=== PATIENT | female | born 1960 | race Caucasian/White ===

== ENCOUNTER 2024-09-29 16:53 | Emergency (ER) | payer MEDICAID, SELFPAY ==
[2024-09-29 16:55] VITALS: BP 129/64; PULSE 80; RESP 18; TEMP 36.6; O2SAT 100
--- NOTE | 2024-09-29 16:58 | XR_ITS ---
Examination: Hand, left 3 views Technique: Hand AP, oblique, lateral 3 views Date and time of exam: September 29, 2024 1744 hours INDICATIONS: Injury to the hand today, hand pain. FINDINGS: Old healed fracture deformity fifth metacarpal Advanced osteoarthritis first carpometacarpal joint Acute fracture midportion distal phalanx first digit No major displacement IMPRESSION: Acute fracture distal phalanx first digit
--- NOTE | 2024-09-29 16:58 | XR_ITS ---
Examination: Right knee 4 views TECHNIQUE: AP oblique lateral axial right knee 4 views Exam date and time: September 29, 2024 1748 hours INDICATIONS: Injury to the knee today, knee pain. FINDINGS: Moderate osteopenia No fracture. No patellar dislocation IMPRESSION: No fracture Small knee effusion
--- NOTE | 2024-09-29 16:59 | EDNOTE_ITS ---
ED Fall Injury RME/HPI General Chief Complaint: Extremity Injury, Upper Stated Complaint: FALL Time Seen by Provider: 09/29/24 16:57 Arrival date/time: 09/29/24 16:53 RME / HPI RME / HPI Narrative: DR. CHENEY MAIN ED EVALUATION: 64 year old female presents to the Emergency Department [facility] with complaint of right knee pain, left thumb pain, and left elbow abrasion secondary to fall prior to arrival. Patient was walking and there was some kind of flower pot and she tripped and fell. Patient denies any of the following: loss of consciousness, blood thinners, head injury, spine injury, or any other symptoms at this time. PMHx: Hypertension, hypothyroidism Social Hx: No tobacco, alcohol, or substance use. Related Data Home Medications ?Medication ?Instructions ?Recorded ?Confirmed levothyroxine 50 mcg tablet 50 mcg PO QDAY 01/10/23 lisinopril 20 1 tab PO QDAY 01/10/2301/10 mg-hydrochlorothiazide 25 mg tablet Previous Rx's ?Medication ?Instructions ?Recorded hydrocodone 7.5 mg-acetaminophen 1 tab PO Q6H PRN pain #16 tabs 02/20/23 325 mg tablet Allergies Allergy/AdvReac Type Severity Reaction Status Date / Time Sulfa (Sulfonamide Allergy Unknown Rash Verified 01/11/23 13:09 Antibiotics) Review of Systems Review of Systems Systems Reviewed: All systems reviewed, normal except as documented Narrative Review of Systems: GEN: No fever, no chills, no weight loss EYES: No discharge, no visual changes, no pain HEENT: No ear pain, no congestion, no sore throat PULM: No shortness of breath, no cough, no congestion CV: No chest pain, no dyspnea on exertion, no palpitations GI: No nausea, no vomiting, no diarrhea, no pain, no constipation : No frequency, no urgency and no dysuria MUSC/SKEL: + right knee pain, + left thumb pain (secondary to fall see HPI), no back pain SKIN: No rash. + left elbow abrasion (secondary to fall see HPI) PSYCH: No hallucinations, no depression HEME/LYMPH: No easy bleeding or bruising tendencies NEURO: No weakness, no headache Past Medical History Past Medical History GENITOURINARY: Positive Genitourinary Disorders (1 kidney nonfunctioning), Renal Disease and Kidney Stones Family History FAMILY HISTORY: Positive Family Cardiac Disorders Social History SMOKING STATUS: Current every day smoker SUBSTANCE USE: marijuana ALCOHOL: Never Travel History EBOLA RISK: No ED Exam Narrative Physical exam: Physical Exam:? General:?? ? The vital signs were reviewed. ? ? The patient is non-toxic, in no apparent distress and appears healthy with a patent airway, no respiratory distress and has no apparent circulatory problems. Head & Scalp:?? ? Normocephalic, atraumatic. Face:?? ? Appears normal and is without lesions, deformity. Ears:??? Left external pinna appears normal. ? ? Right external pinna appears normal. Eyes:?? ? The sclera is anicteric.? No obvious photophobia. ? ? The Left and Right Orbit/Lid/Conjunctiva appears normal without swelling, discoloration or injection. Nose: ? ? The nose is without deformity, discharge or tenderness; Throat: ? ? Appears normal.? The mucous membranes are pink and moist without exudates, redness or mass seen.? The tongue appears normal. Neck: The neck is supple and no apparent mass or adenopathy. Chest: The chest wall is normal in size and symmetry and has no chest wall tende rness or crepitus. ? ? The patient displays normal ventilator effort without retractions, accessory muscle use and has adequate air movement bilaterally with no wheezes and no rales. ? Cardiovascular: Regular rate and rhythm; No murmurs, rubs, or gallops; Gastrointestinal: The abdomen appears normal.? No obvious hernias or mass. The abdomen is soft and benign, non-distended, with no pain, no guarding and no rebound tenderness.? Bowel sounds are present and normal sounding.? No CVA tenderness. Genitourinary: Back/Spine: Extremities/Musculoskeletal/lymphatic:? ? ? Right knee swelling and unable to flex or extend. Left thumb deformity and swelling. Left elbow has an abrasion but FROM. The bilateral upper and lower extremities are warm. There is no evidence of arterial? insufficiency. There is no evidence of venous insufficiency/edema. Skin:? The skin is warm, dry and intact.? No rashes. No petechia. No purpura. No abnormal bruising.? The color is appropriate with no cyanosis. Mental status/Psychiatric: Mental status is appropriate for age. The patient has no apparent delusions, visual hallucinations, no apparent audible hallucinations. The patient has no apparent suicidal thoughts/ideation and no apparent abigail icidal thoughts/ideation. Neurological:? The patient is awake, alert, interactive, cordial, cooperative and is oriented to name and situation. The patient follows commands and answers historical question with no impairment.?? There is no visual disturbance apparent.? The pupils are equal and reactive bilaterally with normal eye movements and no diplopia The bilateral upper and lower extremities have normal strength, normal range of motion and normal functioning. The gait, station and balance appears? to be baseline with no acute change Course Course Course Narrative: 1800: Patient was signed out to Dr. Layne, Past medical, surgical, social and family history reviewed. Vitals and home medications reviewed. Results and treatment plan discussed. They will assume the care of the patient at this time and will follow the patient, pending hand XR, knee XR, and final disposition. Quality Measures none Orders Category Date Time Status XR hand comp LT min 3V Stat Exams 09/29/24 16:58 Completed XR knee comp RT 4V Stat Exams 09/29/24 16:58 Completed Morphine Inj Med 09/29/24 16:58 Discontinued 5 mg IM X1 ONE Ondansetron Odt [Zofran Odt] Med 09/29/24 16:58 Discontinued 4 mg PO X1 ONE Tet,Diphth,Pertuss(Acell)-Tdap [Boostrix Vacc] Med 09/29/24 16:59 Discontinued 0.5 ml IMI .ONCE ONE Vital Signs Vital signs: Vital Signs Temperature 97.8 F 09/29/24 16:55 Pulse Rate 80 09/29/24 16:55 Respiratory Rate 18 09/29/24 16:55 Blood Pressure 129/64 09/29/24 16:55 Pulse Oximetry (%) 100 09/29/24 16:55 Oxygen Delivery Method Room Air 09/29/24 16:55 Fall MDM Narrative MDM Narrative:: I, Melisa Townsend, am scribing for and in the presence of Dr. Cheney. Patient is 64-year-old with walking and tripped on something on the concrete and fell forward landing on both her hands and her right knee. A full examination is reveals no head or neck pain. No clavicle pain shoulders are moving well right arm has no obvious injury. Left elbow has some abrasions but the elbow moves with full range of motion. The left thumb has distal swelling and pain and most likely fracture Demix is a small deformity there. On palpation. Medical workup revealed x-ray of the left thumb reveals a fracture of the distal phalanx fairly well aligned. There is no dislocation. The other bones of the hand are unremarkable. X-ray of the right knee reveals no fracture dislocation and the patella is intact. And this was read by myself. Patient had a lot of pain in her left thumb and was given some pain medicines and was feeling much better by the time my evaluation. Because I wanted an ice conformed thumb spica splint I got some plaster and made a custom thumb spica with Webril and applied it myself and then put the plaster on and wrapped it with a David wrap gently. Patient tolerated well she is neurovascularly intact after the splint was placed. Just to make sure she had no other injury she got up and walk without any difficulty asked she walked over the doctor station did some jumping jacks with a big smile. She was advised to follow-up with her doctor get referred to orthopedic surgeon to evaluate the thenar eminence pain which is most likely a muscle sprain or hyperextension injury and follow-up on the distal phalanx f racture. Patient states she has 1 kidney and only wants to use Tylenol for pain and was advised to keep it elevated avoid any throbbing and additional pain. Patient data External records reviewed:: [facility] previous records (Reviewed last ED visit dated 02/26/23, discharged with the following: Generalized weakness) and EMS form Clinical information provided by:: patient and EMS Social determinants that could affect healthcare access:: substance use (marijuana) Patient has the following chronic illnesses:: Hypertension, hypothyroidism How is presenting disease/condition affected by chronic disease/condition?: uneffected by Evaluation data The following diagnostics were reviewed and interpreted by me:: radiology exam(s) Lab and/or radiology exams considered but not ordered:: none Interpretation Summary: Pending radiology. Medications / Prescriptions Medications or Prescriptions considered but not ordered:: none Medication administrations:: Medication Administration History Discontinued Medications Diphtheria/Tetanus/Acell Pertussis (Diphth,Pertuss(Acell),Tet Vac 0.5 Ml Syr) 0.5 ml IMi .ONCE ONE Stop: 09/29/24 17:00 Last Admin: 09/29/24 18:16 Dose: 0.5 ml Documented By: LARA Morphine Sulfate (Morphine Sulf Inj 10 Mg/Ml Vial) 5 mg IM X1 ONE Stop: 09/29/24 16:59 Last Admin: 09/29/24 18:15 Dose: 5 mg Documented By: LARA Ondansetron HCl (Ondansetron Odt 4 Mg Tabrap) 4 mg PO X1 ONE; Protocol Stop: 09/29/24 16:59 Last Admin: 09/29/24 18:15 Dose: 4 mg Documented By: LARA see above if any Consultations Consultation(s) initiated? (list below): No Consultation #1 (Physician, Specialty, Details): Patient signout to the control systems developer provider. Diagnosis Fall Differential Diagnosis: other (hand fracture, finger fracture, knee fracture) Most likely diagnosis given after review of the tests above:: No official diagnoses at this time, still pending diagnostic tests. Patient signout to the control systems developer provider. Admission Indicated Admission indicated?: not indicated Explain why admission is indicated or not indicated:: No final disposition plan at this time, still pending diagnostic tests. Patient signout to the control systems developer provider. Admission Request Was there a request for admission?: No Disposition Plan Disposition Plan: other (specify) (Patient signout to the control systems developer provider. ) Discharge Plan Plan Patient Disposition: HOME (Self Care) Prescriptions/Referrals Prescriptions/Med Rec: No Action levothyroxine 50 mcg Tablet 50 mcg PO QDAY lisinopril-hydrochlorothiazide 20-25 mg Tablet 1 tab PO QDAY hydrocodone-acetaminophen 7.5-325 mg tablet 1 tab PO Q6H MDD 4 PRN (Reason: pain) Qty: 16 0RF Referrals: No Primary/Family,Physician [Primary Care Provider] - In 1 week Problem List Clinical Impression: Accidental fall, Fracture of distal phalanx of left thumb, Abrasion of elbow, left, Contusion of knee, right, Abrasion of knee, right, Fracture of hand Patient/Caregiver Discharge Instructions Education Materials: ED Abrasions, ED Fracture, Thumb Additional Instructions: As we discussed call your doctor again appointment next couple days and referral to orthopedic surgeon to reevaluate that thumb fracture. Also because of the pain and swelling of the thenar muscle area make sure they follow-up on that as this may be sprained or strained. Observe your abrasions for any infection and make sure you follow-up with your doctor or return if any evidence of infection is occurring. Make an appoint with your doctor in the next 1 to 2 days so to get the orthopedic referral in a timely fashion. You can use Tylenol for pain. Keep the thumb and hand elevated to avoid swelling and to decrease throbbing pain Print Language: Spanish Stand Alone Forms: Madeleine Award Info., Patient Portal Info Letter
[2024-09-29 17:10] VITALS: PULSE 80; RESP 19; O2SAT 99; BMI 25.7
[2024-09-29] MEDS: MORPHINE SULF INJ 10 MG/ML VIAL 5 MG IM (18:15)
[2024-09-29] MEDS: ONDANSETRON ODT 4 MG TABRAP PO (18:15)
[2024-09-29] MEDS: DIPHTH,PERTUSS(ACELL),TET VAC 0.5 ML SYR IMi (18:16)
--- NOTE | 2024-09-29 18:17 | PD.EDADDENDU ---
Emergency Room Addendum Addendum Narrative: [address] Crow. Past medical, surgical, social and family history reviewed. Vitals and home medications reviewed. Results and treatment plan discussed. I will assume the care of the patient at this time and will follow the patient, pending work-up and final disposition Please refer to the emergency department record for history and examination from initial visit. The following addendum documentation note is intended to reflect any pending information, findings, or radiology results not included in the patient?s initial chart. Physical exam by me shows patient under no acute distress at this time.
[2024-09-29 18:23] VITALS: BP 150/102; PULSE 69; RESP 18; TEMP 36.8; O2SAT 96
== END 2024-09-29 19:59 | disposition home or self-care (01) ==
PROVIDERS: Emergency Provider Emergency Medicine
DX: S62.522A Displaced fracture of distal phalanx of left thumb, initial encounter for closed fracture (principal); S80.01XA Contusion of right knee, initial encounter; S50.312A Abrasion of left elbow, initial encounter; W01.0XXA Fall on same level from slipping, tripping and stumbling without subsequent striking against object, initial encounter; Y93.01 Activity, walking, marching and hiking; Z23 Encounter for immunization
CPT/HCPCS: 29125; 73130; 73564; 90471; 90715; 96372; 99284; J2270; Q0162

== ENCOUNTER → 2024-10-20 | Outpatient (CLI) | payer MEDICAID, SELFPAY ==
--- NOTE | 2024-10-20 15:07 | XR_ITS ---
EXAMINATION: XR hand comp LT min 3V, XR wrist comp LT min 3V ORDERING PROVIDER: ALIVIA Haile HISTORY: HAND PAIN, LT. TECHNIQUE: 6 radiographs of the right hand and wrist were obtained. COMPARISON: December 27, 2024, left hand radiographs. FINDINGS: There is a similar appearing nondisplaced fracture of the thumb distal phalangeal body, which is mildly comminuted. There is intra-articular extension. This appears to spare the tuft. Questionable trace callus formation along the radial aspect. There is surrounding soft tissue swelling. There are moderate to severe degenerative changes in an osteoarthritic pattern, most pronounced at the thumb carpometacarpal joint. IMPRESSION: Similar-appearing comminuted, intra-articular thumb distal phalangeal fracture.
== END | disposition home or self-care (01) ==
PROVIDERS: PCP Family Medicine
DX: S62.522A Displaced fracture of distal phalanx of left thumb, initial encounter for closed fracture (principal); X58.XXXA Exposure to other specified factors, initial encounter
CPT/HCPCS: 73110; 73130

== ENCOUNTER → 2024-11-09 | Outpatient (CLI) | payer MEDICAID, SELFPAY ==
--- NOTE | 2024-11-09 11:27 | XR_ITS ---
Examination: Hand, left 3 views Technique: Hand AP, oblique, lateral 3 views Date and time of exam: November 09, 2024 1240 hours INDICATIONS: Patient fell one month ago with injury to the first digit, first digit pain. FINDINGS: Fractures distal phalanx first digit including mild offset at the base of the distal phalanx first digit IMPRESSION: Partial healing and stable alignment fractures distal phalanx first digit compared with October 20, 2024
--- NOTE | 2024-11-09 11:28 | XR_ITS ---
Examination: Forearm, left, 2 views. Technique: Forearm, AP, lateral 2 views Date and time of exam: November 09, 2024 1240 hours INDICATIONS: Patient fell last month with injury to the forearm, forearm pain. FINDINGS: No acute fracture No dislocation IMPRESSION: No acute fracture
--- NOTE | 2024-11-09 11:28 | XR_ITS ---
Examination: Wrist, left 3 views Technique: Wrist AP, oblique, lateral 3 views Date and time of exam: November 09, 2024 at 12:45 PM INDICATIONS: Patient fell last month with injury to the wrist, wrist pain. FINDINGS: Moderate osteopenia. No acute fracture Significant osteoarthritis first carpometacarpal joint IMPRESSION: No acute fracture
--- NOTE | 2024-11-09 11:29 | XR_ITS ---
Examination: Left elbow 3 views Technique: Elbow AP, oblique, lateral 3 views Exam date and time: November 09, 2024 1240 hours INDICATIONS: Patient fell last month with injury to the elbow, elbow pain. FINDINGS: No acute fracture No dislocation No elbow effusion IMPRESSION: No acute fracture.
== END | disposition home or self-care (01) ==
LOC: CDIM 11:17
PROVIDERS: Referring Provider Physician Assistant; Visit Provider Physician Assistant
DX: S59.912A Unspecified injury of left forearm, initial encounter (principal); S62.522A Displaced fracture of distal phalanx of left thumb, initial encounter for closed fracture; S69.92XA Unspecified injury of left wrist, hand and finger(s), initial encounter; S59.902A Unspecified injury of left elbow, initial encounter; W19.XXXA Unspecified fall, initial encounter
CPT/HCPCS: 73080; 73090; 73110; 73130

== ENCOUNTER 2025-01-27 11:00 | Outpatient (RCR) | payer MEDICARE, MEDICAID, SELFPAY ==
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
--- NOTE | 2025-01-27 11:41 | PT.ODAYNRPT ---
PT Outpatient Daily Note OP Daily Note Outpatient Physical Therapy Treatment Date: 01/27/25 Visit Reasons: right knee pain Subjective: Pt's right knee continues to hurt with popping. Pt further reports of left knee abnormality where there's a dent on the outside of her left knee. Pt just notice the dent today and is unsure if it's related to her fall or when she injured the knee. Objective: Please see flow chart for list of ther ex performed Assessment: inspected left knee and noted a small indentation of the skin on the lateral aspect of the left knee. Pt advised to consult with PCP regarding her concern since she is currently doing physical therapy for her right knee. Pt gave verbal understanding. Pt tolerate all exercises completed on the right knee today with minimal pain. Plan: Continue with PT Length of Time (minutes) of Treatment: 30 Minutes Procedure Charges Therapeutic Exercise 30 minutes: Yes
== END 2025-02-08 23:59 | disposition home or self-care (01) ==
LOC: CPTX 11:00
PROVIDERS: PCP Physician Assistant; Referring Provider Physician Assistant; Visit Provider Physician Assistant
DX: M25.561 Pain in right knee (principal); R53.1 Weakness; R26.2 Difficulty in walking, not elsewhere classified; R26.89 Other abnormalities of gait and mobility; S89.91XD Unspecified injury of right lower leg, subsequent encounter; W19.XXXD Unspecified fall, subsequent encounter
CPT/HCPCS: 97110; 97162

== ENCOUNTER 2025-02-11 10:27 | Outpatient (RCR) | payer MEDICARE, MEDICAID, SELFPAY ==
--- NOTE | 2025-02-11 11:26 | PTNOTE_ITS ---
PT Outpatient Daily Note OP Daily Note Outpatient Physical Therapy Treatment Date: 02/11/25 Visit Reasons: right knee pain Subjective: No new complaint or concerns. Objective: Please see flow sheet for ther ex list. Assessment: Added squat exercise, pt performed with good knee mechanics. Plan: Continue with POC. Length of Time (minutes) of Treatment: 30 Minutes CYLINDRICAL MIXER Service Modifier Method I: Divide the number of min of care provided by the CYLINDRICAL MIXER/RESEARCH QUALITY ASSURANCE SPECIALIST by the total min of care provided then multiply by 100. If greater than 11 percent modifier is required. Method II: Divide the total time of care provided to patient by 10 (round to the nearest whole number) and add 1 min. to set the minimum time requirement. If treatment total was 60 min., then 10% of 6 min PT CQ modifier applied: CQ Modifier applied Procedure Charges Therapeutic Exercise 30 minutes: Yes
--- NOTE | 2025-03-30 12:48 | PTNOTE_ITS ---
PT OP Progress/Discharge Note Date of Service: 03/30/25 Progress Note/DC Note Progress Note/Discharge Note: DC Note Patient Information Visit Reasons: right knee pain Service Discharge Date: 03/30/25 Status Assessment: Pt has been seen for 3 visits (eval + 2 visits). Pt last treated on 02/11/25 and has not returned to therapy. At this time Pt will be d/c from care due to non- compliance per attendance policy. Pt did not meet set goals in therapy; thank you for your referrals
== END 2025-03-11 23:59 | disposition home or self-care (01) ==
LOC: CPTX 10:27
PROVIDERS: PCP Physician Assistant; Referring Provider Physician Assistant; Visit Provider Physician Assistant
DX: M25.561 Pain in right knee (principal); R53.1 Weakness; R26.2 Difficulty in walking, not elsewhere classified; R26.89 Other abnormalities of gait and mobility; S89.91XD Unspecified injury of right lower leg, subsequent encounter; W19.XXXD Unspecified fall, subsequent encounter
CPT/HCPCS: 97110

== ENCOUNTER → 2025-04-21 | Outpatient (CLI) | payer MEDICARE, MEDICAID, SELFPAY ==
[2025-04-21 10:06] LABS: Collection Type, Urine Clean Catch
[2025-04-21 10:29] LABS: Basophils # (Auto) 0.0 Thou/mm3 (0.0-0.2); Basophils % (Auto) 0 % (0-2.5); Eosinophils # (Auto) 0.1 Thou/mm3 (0.0-0.5); Eosinophils % (Auto) 2 % (0-10); Hematocrit 43.0 % (36.0-46.0); Hemoglobin 13.9 g/dL (12.0-16.0); Immature Granulocytes Auto 0.02 Thou/mm3 (0.00-0.00); Lymphocytes # (Auto) 2.1 Thou/mm3 (1.0-4.8); Lymphocytes % (Auto) 36 % (10-50); Mean Corpuscular HGB Conc 32.3 g/dl (31.0-37.0); Mean Corpuscular Hemoglobin 27.3 pg (25.0-35.0); Mean Corpuscular Volume 84 fL (80-100); Monocytes # (Auto) 0.4 Thou/mm3 (0.0-0.8); Monocytes % (Auto) 6 % (0-12); Neutrophils # (Auto) 3.2 Thou/mm3 (1.8-7.7); Neutrophils % (Auto) 55 % (37-80); Nucleated Red Blood Cell # 0.00 Thou/mm3 (0.00-0.00); Nucleated Red Blood Cell % 0 /100 WBC (0); Platelet Count 225 Thou/mm3 (140-440); RDW Standard Deviation 41.7 fL (36.4-46.3); Red Blood Count 5.10 Miln/mm3 (4.00-5.20); White Blood Count 5.9 Thou/mm3 (3.6-11.0)
[2025-04-21 10:34] LABS: Bilirubin,Urine Negative (Negative); Blood,Urine Negative (Negative); Clarity,Urine Clear (Clear/Hazy); Color,Urine Colorless (Lt Yel-Yel); Glucose, Urine Negative (Negative); Ketones,Urine Negative (Negative); Leukocyte Esterase,Urine Negative (Negative); Nitrite,Urine Negative (Negative); PH,Urine 7.5 (5.0-7.0); Protein,Urine Negative (Neg - Trace); RBC,Urine 1 /hpf (0-3); Specific Gravity,Urine 1.006 (1.001-1.035); Squamous Epithelial Cell,Urine 1 /hpf (0-5); Urobilinogen,Urine Negative mg/dL (0.0-1.0); WBC,Urine 1 /hpf (0-5)
[2025-04-21 10:38] LABS: Glucose Estimated Average 128 mg/dL (80-131); Hemoglobin A1C 6.1 % Hgb (4.8-6.0)
[2025-04-21 10:48] LABS: Alanine Aminotransferase 11 U/L (10-49); Albumin, Serum 4.3 gm/dL (3.4-4.8); Albumin/Globulin Ratio 2.0 (1.2-2.2); Alkaline Phosphatase 35 U/L (46-116); Anion Gap 8 (7-16); Aspartate Amino Transferase 19 U/L (0-34); BUN/Creatinine Ratio 10 Ratio (12-20); Bilirubin,Total 0.5 mg/dL (0.3-1.2); Blood Urea Nitrogen 10 mg/dL (9-23); Calcium 9.6 mg/dL (8.3-10.6); Calcium (Corrected) 9.6 mg/dL (8.5-10.1); Carbon Dioxide 30.0 mMol/L (20.0-31.0); Cardiac Risk Estimate 3.9 RATIO (3.7-5.6); Chloride 104 mMol/L (98-107); Cholesterol 276 mg/dL (132-200); Creatinine (Component) 1.0 mg/dL (0.6-1.3); Globulin 2.1 gm/dL (2.3-3.5); Glucose 98 mg/dL (74-106); HDL Cholesterol 70 mg/dL (40-60); LDL Cholesterol,Calculated 190 mg/dL (0-130); Osmolality,Calculated 282 (275-295); Potassium 4.5 mMol/L (3.4-5.1); Sodium 142 mMol/L (136-145); Thyroid Stimulating Hormone 14.71 uIU/mL (0.55-4.78); Total Protein 6.4 gm/dL (5.7-8.2); Triglycerides 81 mg/dL (30-150); eGFR > 60 See Note
== END | disposition home or self-care (01) ==
LOC: COPL 09:28
PROVIDERS: PCP Family Medicine; Referring Provider Family Medicine; Visit Provider Family Medicine
DX: Z00.00 Encounter for general adult medical examination without abnormal findings (principal); E03.9 Hypothyroidism, unspecified; I10 Essential (primary) hypertension; E78.2 Mixed hyperlipidemia; Z83.3 Family history of diabetes mellitus
CPT/HCPCS: 36415; 80053; 80061; 81001; 83036; 84443; 85025

== ENCOUNTER 2025-05-30 08:35 | Emergency (ER) | payer MEDICARE, MEDICAID, SELFPAY ==
--- NOTE | 2025-05-30 | XR_ITS ---
Examination: Abdomen AP single view Technique: AP portable supine abdomen, single view Exam date and time: May 30, 2025, 1645 hours INDICATIONS: Abdominal pain and distention this week, 2-hour delay film post small bowel series today. FINDINGS: Abundant contrast in the colon IMPRESSION: Negative for small bowel obstruction, no further films are needed
--- NOTE | 2025-05-30 | XR_ITS ---
Examination: Abdomen AP single view Technique: AP portable supine abdomen, single view Exam date and time: May 30, 2025, 1834 hours INDICATIONS: Abdominal distention this week, 4-hour delayed film close small bowel series FINDINGS: Most of the contrast is in the colon IMPRESSION: Negative for small bowel obstruction, no further films are needed
[2025-05-30 08:40] VITALS: PULSE 92; RESP 16; O2SAT 95
[2025-05-30 09:04] VITALS: BP 166/99; PULSE 79; RESP 19; TEMP 36.7; O2SAT 99; BMI 22.9
--- NOTE | 2025-05-30 09:32 | XR_ITS ---
Examination: Abdomen AP single view Technique: AP portable supine abdomen, single view Exam date and time: May 30, 2025, 0946 hours INDICATIONS: Abdominal pain and constipation several days FINDINGS: Nonobstructive bowel gas pattern No free air. Intact osseous structures Moderate air and stool throughout the colon IMPRESSION: Nonobstructive bowel gas pattern
--- NOTE | 2025-05-30 09:40 | PD.EDRME ---
Rapid Medical Screening Exam E Arrival date/time: 05/30/25 08:35 This is a 65-year-old female that comes into the emergency room with complaints of abdominal pain and back pain. Patient also states she has been having some nausea but no vomiting. Patient reports that she has not had a bowel movement in 1 month. Patient was recently prescribed Linzess and initially when patient first took the medication it gave her diarrhea but she does not know if it is causing her to be constipated. Patient states that she has tried all the medications [id number] to have a bowel movement. Patient states that she feels a lot of pressure in her rectum. Patient has a history of hypothyroidism and high blood pressure. Of note she also reports she has gained 20 pounds in that month that she has not had a bowel movement I have greeted and performed a focused initial assessment of this patient. Initial appropriate labs ordered at this time. A comprehensive ED assessment and evaluation of the patient and analysis of all test and completion of medical decision making process will be conducted by additional ED provider. Chief Complaint: Abdominal Pain Time Seen by Provider: 05/30/25 08:55 Vital signs: Vital Signs Temperature 98.0 F 05/30/25 09:04 Pulse Rate 79 05/30/25 09:04 Respiratory Rate 19 05/30/25 09:04 Blood Pressure 166/99 H 05/30/25 09:04 Pulse Oximetry (%) 99 05/30/25 09:04 Oxygen Delivery Method Room Air 05/30/25 09:04
--- NOTE | 2025-05-30 10:00 | PC.NURSE ---
DEFORMITY TO RIGHT WRIST, ICE PACK GIVEN. MEDICATION ORDERED, PENDING PHARMACY VERIFICATION
[2025-05-30 10:03] LABS: Collection Type, Urine Voided
[2025-05-30 10:26] LABS: Basophils # (Auto) 0.0 Thou/mm3 (0.0-0.2); Basophils % (Auto) 0 % (0-2.5); Eosinophils # (Auto) 0.0 Thou/mm3 (0.0-0.5); Eosinophils % (Auto) 1 % (0-10); Hematocrit 44.7 % (36.0-46.0); Hemoglobin 14.7 g/dL (12.0-16.0); Immature Granulocytes Auto 0.02 Thou/mm3 (0.00-0.00); Lymphocytes # (Auto) 1.6 Thou/mm3 (1.0-4.8); Lymphocytes % (Auto) 25 % (10-50); Mean Corpuscular HGB Conc 32.9 g/dl (31.0-37.0); Mean Corpuscular Hemoglobin 27.4 pg (25.0-35.0); Mean Corpuscular Volume 83 fL (80-100); Monocytes # (Auto) 0.3 Thou/mm3 (0.0-0.8); Monocytes % (Auto) 5 % (0-12); Neutrophils # (Auto) 4.4 Thou/mm3 (1.8-7.7); Neutrophils % (Auto) 69 % (37-80); Nucleated Red Blood Cell # 0.00 Thou/mm3 (0.00-0.00); Nucleated Red Blood Cell % 0 /100 WBC (0); Platelet Count 221 Thou/mm3 (140-440); RDW Standard Deviation 41.7 fL (36.4-46.3); Red Blood Count 5.36 Miln/mm3 (4.00-5.20); White Blood Count 6.4 Thou/mm3 (3.6-11.0)
[2025-05-30 10:29] LABS: Alanine Aminotransferase 8 U/L (10-49); Albumin, Serum 4.7 gm/dL (3.4-4.8); Albumin/Globulin Ratio 1.9 (1.2-2.2); Alkaline Phosphatase 34 U/L (46-116); Anion Gap 9 (7-16); Aspartate Amino Transferase 21 U/L (0-34); BUN/Creatinine Ratio 8 Ratio (12-20); Bilirubin,Total 0.5 mg/dL (0.3-1.2); Blood Urea Nitrogen 8 mg/dL (9-23); Calcium 9.7 mg/dL (8.3-10.6); Calcium (Corrected) 9.7 mg/dL (8.5-10.1); Carbon Dioxide 25.5 mMol/L (20.0-31.0); Chloride 107 mMol/L (98-107); Creatinine (Component) 1.0 mg/dL (0.6-1.3); Estimated Creatinine Clearance 55.8 mL/min (>60); Globulin 2.5 gm/dL (2.3-3.5); Glucose 110 mg/dL (74-106); Lipase 27 U/L (12-53); Osmolality,Calculated 280 (275-295); Potassium 4.2 mMol/L (3.4-5.1); Sodium 141 mMol/L (136-145); Total Protein 7.2 gm/dL (5.7-8.2); eGFR > 60 See Note
[2025-05-30 10:38] LABS: Bilirubin,Urine Negative (Negative); Blood,Urine 1+ (Negative); Color,Urine Yellow (Lt Yel-Yel); Culture Indicated,Urine Not Indicated; Glucose, Urine Negative (Negative); Hyaline Casts,Urine < 1 /hpf (0-1); Ketones,Urine 2+ (Negative); Leukocyte Esterase,Urine Positive (Negative); Nitrite,Urine Negative (Negative); PH,Urine 6.0 (5.0-7.0); Protein,Urine Trace (Neg - Trace); RBC,Urine 14 /hpf (0-3); Specific Gravity,Urine 1.021 (1.001-1.035); Squamous Epithelial Cell,Urine 8 /hpf (0-5); Urobilinogen,Urine Negative mg/dL (0.0-1.0); WBC,Urine 4 /hpf (0-5)
[2025-05-30 10:44] LABS: Clarity,Urine Hazy (Clear/Hazy)
--- NOTE | 2025-05-30 12:11 | PD.EDABDPN ---
ED Abdominal Pain RME/HPI General Chief Complaint: Abdominal Pain Stated complaint: BACK PAIN/ ABD PAIN CHRONIC CONSTIPATION Time seen by provider: 05/30/25 08:55 Arrival date/time: 05/30/25 08:35 Limitations: no limitations RME / HPI RME / HPI narrative: 05/30/25 08:35 This is a 65-year-old female that comes into the emergency room with complaints of abdominal pain and back pain. Patient also states she has been having some nausea but no vomiting. Patient reports that she has not had a bowel movement in 1 month. Patient was recently prescribed Linzess and initially when patient first took the medication it gave her diarrhea but she does not know if it is causing her to be constipated. Patient states that she has tried all the medications [id number] to have a bowel movement. Patient states that she feels a lot of pressure in her rectum. Patient has a history of hypothyroidism and high blood pressure. Of note she also reports she has gained 20 pounds in that month that she has not had a bowel movement I have greeted and performed a focused initial assessment of this patient. Initial appropriate labs ordered at this time. A comprehensive ED assessment and evaluation of the patient and analysis of all test and completion of medical decision making process will be conducted by additional ED provider. Dr. Mckay evaluation Patient is a 65-year-old female medical history notable for kidney stones is in the emergency department concerns for abdominal and flank pain. Patient has a history of constipation, has tried multiple medications for constipation relief at home however has had minimal response. States that she has had minimal bowel movements at home over the last month. While in the emergency department had a small bowel movement and is passing gas. Denies fevers chills nausea vomiting chest pain dysuria hematuria melena bloody stool drugs alcohol smoking recent travel sick contacts. Patient is allergic to sulfa. Patient is not currently in the care of a preparation room manager. Patient was in the care of a preparation room manager years ago however would like to switch over to a new provider. Related Data Home Medications ?Medication ?Instructions ?Recorded ?Confirmed levothyroxine 50 mcg tablet 50 mcg PO QDAY 01/10/23 01/10/23 lisinopril 20 1 tab PO QDAY 01/10/23 01/10/23 mg-hydrochlorothiazide 25 mg tablet Previous Rx's ?Medication ?Instructions ?Recorded hydrocodone 7.5 mg-acetaminophen 1 tab PO Q6H PRN pain #16 tabs 02/20/23 325 mg tablet lactulose 10 gram/15 mL oral 20 g (30 mL) PO BID #473 mL 05/30/25 solution magnesium citrate 150 ml PO QDAY PRN constipation 05/30/25 #296 mL Allergies Allergy/AdvReac Type Severity Reaction Status Date / Time Sulfa (Sulfonamide Allergy Unknown Rash Verified 05/30/25 08:46 Antibiotics) ED Exam General Limitations: Present no limitations General appearance: Present alert and in no apparent distress Head Head exam: Present atraumatic and normocephalic Eye Eye exam: Present normal appearance and PERRL ENT ENT exam: Present normal exam and normal oropharynx Neck Neck exam: Present normal inspection and full ROM Chest Chest inspection: Present normal inspection and symmetric chest wall rise Respiratory Respiratory exam: Present normal lung sounds bilaterally; Absent respiratory distress Cardiovascular Cardiovascular exam: Present regular rate and normal rhythm Abdominal Exam Abdominal exam: Present soft; Absent distention, tenderness or guarding Extremities Exam Extremities exam: Present normal inspection and full ROM Neurological Exam Neurological exam: Present alert, oriented X3 and CN II-XII intact Psychiatric Psychiatric exam: Present normal affect and normal mood Skin Skin exam: Present warm, dry and intact Course Quality Measures none Orders Category Date Time Status CT Screening NOW Care 05/30/25 12:[address] Screening NOW Care 05/30/25 14:04 Completed EKG (ED ONLY) *Do not use* NOW Care 05/30/25 14:08 Completed Insert IV NOW Care 05/30/25 14:11 Completed Soap Suds [Enema Administration] NOW Care 05/30/25 12:[address] abdomen pelvis w con Stat Exams 05/30/25 14:04 Completed EKG (ED Only) Stat Exams 05/30/25 14:08 Draft KUB [XR abdomen 1V] Stat Exams 05/30/25 09:32 Completed XR abdomen 1V Urgent Exams 05/30/25 Completed XR abdomen 1V Urgent Exams 05/30/25 Completed XR small bowel single contrast Stat Exams 05/30/25 14:07 Completed CBC Stat Lab 05/30/25 09:49 Completed Comprehensive Metabolic Panel Stat Lab 05/30/25 09:49 Completed Lipase Stat Lab 05/30/25 09:49 Completed Troponin I Stat Lab 05/30/25 15:30 Completed Urinalysis, C/S if Indicated Stat Lab 05/30/25 09:45 Completed Acetaminophen Tab [Tylenol Tab] Med 05/30/25 13:32 Discontinued 650 mg PO X1 ONE Magnesium Citrate Liqd [Citrate of Magnesia Liqd] Med 05/30/25 12:23 Discontinued 300 ml PO X1 ONE Ondansetron Odt [Zofran Odt] Med 05/30/25 14:04 Discontinued 4 mg PO X1 ONE bisacodyL [Dulcolax Supp] Med 05/30/25 12:[address] X1 ONE Vital Signs Vital signs: Vital Signs Temperature 98.0 F 05/30/25 09:04 Pulse Rate 79 05/30/25 09:04 Respiratory Rate 19 05/30/25 09:04 Blood Pressure 166/99 H 05/30/25 09:04 Pulse Oximetry (%) 99 05/30/25 09:04 Oxygen Delivery Method Room Air 05/30/25 09:04 Abdominal Pain MDM MDM Narrative MDM Narrative:: Patient is a 65-year-old female seen emerged primary concerns for abdominal pain. Vital signs and exam as listed. Concern for obstruction, constipation, pancreatitis, urinary tract infection, pyelonephritis among others. Prior provider evaluated patient. Ordered labs as well as abdominal x-ray. Offer medication for symptom relief. Labs without acute hematologic abnormality, no significant metabolic derangement, lipase not elevated, urinalysis with 14 RBCs leuk esterase positive for white blood cells 8 squames no bacteria nitrite negative. Given patient with symptoms we will send for culture. X-ray of the abdomen with nonspecific bowel gas pattern. Given patient history ordered CT abdomen pelvis with contrast. Urinalysis with ketones, no nitrites, patient is positive for leuk esterase, 14 red blood cells, 4 white blood cells 8 squamous cells no bacteria. Patient without any dysuria. Will send for culture. Per chart review patient has a history of duplicated renal collecting system. I re-evaluated the patient, abdomen soft nondistended tender, no rebound or guarding, no flank tenderness to palpation. Patient states that she had a small bowel movement and is passing gas now. Had extensive conversation with the patient. Offered her enema, rectal suppository and oral medications to help with having a bowel movement versus sending home with medications for gut motility. Patient would like to stay to have an enema. 2:03p was notified by nursing staff that patient is vomiting. Ordered Zofran as well as a CT scan given patient's history of constipation may be partially obstructing. EKG performed at 1425 notable for sinus rhythm, heart rate 70, normal intervals, patient with ST depressions in lead I,aVF, aVL V4, V5, V6. Patient denies any chest pain. Troponin not elevated. CT scan with severe scarring of both kidneys, multiple subcentimeter nonobstructing renal left renal calculi, no hydronephrosis. Reevaluated patient, patient having large bowel movements. Feels significantly better. Will discharge home with close return precautions follow-up with her primary care doctor as well as preparation room manager Patient data External records reviewed:: [facility] previous records Clinical information provided by:: patient Social determinants that could affect healthcare access:: none Patient has the following chronic illnesses:: See MDM How is presenting disease/condition affected by chronic disease/condition?: exacerbated by Evaluation data The following diagnostics were reviewed and interpreted by me:: lab results and radiology exam(s) Lab and/or radiology exams considered but not ordered:: None Interpretation Summary: See MDM Medications / Prescriptions Medications or Prescriptions considered but not ordered:: None Medication administrations:: Medication Administration History Discontinued Medications Acetaminophen (Acetaminophen 325 Mg Tablet) 650 mg PO X1 ONE Stop: 05/30/25 13:33 Last Admin: 05/30/25 14:07 Dose: 650 mg Documented By: BD Bisacodyl (Bisacodyl 10 Mg Supp) [address] X1 ONE; Protocol Stop: 05/30/25 12:24 Last Admin: 05/30/25 13:23 Dose: Not Given Documented By: OA Non-Admin Reason: Patient Refused Magnesium Citrate (Magnesium Citrate 300 Ml Btl) 300 ml PO X1 ONE Stop: 05/30/25 12:24 Last Admin: 05/30/25 13:29 Dose: 300 ml Documented By: VL Ondansetron HCl (Ondansetron Odt 4 Mg Tabrap) 4 mg PO X1 ONE; Protocol Stop: 05/30/25 14:05 Last Admin: 05/30/25 14:07 Dose: 4 mg Documented By: BD See above Consultations Consultation(s) initiated? (list below): No Diagnosis Differential diagnosis abdominal pain: other Most likely diagnosis given after review of the tests above:: Constipation Admission Indicated Admission indicated?: not indicated Admission Request Was there a request for admission?: No Disposition Plan Disposition Plan: Discharge Discharge Attestation Discharge Attestation: The patient and all family members were given an opportunity to ask questions and understood the discharge instructions. Discharge instructions specifically effects, indications for sooner follow up or return to the emergency department, and the expected course of current diagnosis. Patient condition: Stable Discharge Plan Plan Patient Disposition: HOME (Self Care) Prescriptions/Referrals Prescriptions/Med Rec: New magnesium citrate Solution 150 ml PO QDAY PRN (Reason: constipation) Qty: 296 0RF lactulose 10 gram/15 mL solution 20 g PO BID Qty: 473 0RF No Action levothyroxine 50 mcg Tablet 50 mcg PO QDAY lisinopril-hydrochlorothiazide 20-25 mg Tablet 1 tab PO QDAY hydrocodone-acetaminophen 7.5-325 mg tablet 1 tab PO Q6H MDD 4 PRN (Reason: pain) Qty: 16 0RF Referrals: Ty Mcneil MD [Primary Care Provider, Family Practice] - In 1 week Problem List Clinical Impression: Constipation Patient/Caregiver Discharge Instructions Education Materials: ED Constipation (Adult) Additional Instructions: Please follow-up with your primary care doctor and request evaluation with a preparation room manager. It is important that you are in the care of preparation room manager long-term given your history of chronic constipation. Please return immediately for worsening symptoms or new symptoms of concern. Print Language: Citizen Of [place] Stand Alone Forms: Madeleine Award Info., Patient Portal Info Letter
[2025-05-30 12:12] VITALS: BP 178/88; PULSE 76; RESP 19; TEMP 37.2; O2SAT 98
[2025-05-30] MEDS: MAGNESIUM CITRATE 300 ML BTL PO (13:29)
--- NOTE | 2025-05-30 14:04 | XR_ITS ---
Examination: CT abdomen with intravenous contrast CT pelvis with intravenous contrast 2-D coronal reconstructions 2-D sagittal reconstructions Date and time of exam: May 30, 2025, 1446 hours, comparison February 20, 2023 INDICATIONS: Abdominal pain constipation nausea beginning 3 months ago. CTDI: vol (mGy) 9.79 DLP: (mGycm) 494 Technique: Multiple axial sections of the abdomen and pelvis have been obtained. 64 slice high-resolution scanner used. 3 mm axial sections have been obtained, post intravenous injection of 60 cc [id number] 2-D sagittal, coronal reconstructions obtained. Low dose protocols were performed. One or more of the following dose reduction techniques were used; automated exposure control, adjustment of the mA and/or KV according to patient size, use of iterative reconstruction technique. Findings: No focal liver or splenic lesions Contracted gallbladder No pancreatic mass. Minimal nodular thickening left adrenal gland Severe scarring both kidneys with multiple small nonobstructing left renal calculi No hydronephrosis Moderate colonic ileus. No obstruction. No diverticulitis. Absent uterus No bladder mass. Prominent osteopenia with advanced degenerative disc disease L5-S1 IMPRESSION: Severe scarring both kidneys Multiple subcentimeter nonobstructing left renal calculi, no hydronephrosis Moderate colonic ileus No CT findings of appendicitis or bowel obstruction
[2025-05-30] MEDS: ACETAMINOPHEN 325 MG TABLET 650 MG PO (14:07)
[2025-05-30] MEDS: ONDANSETRON ODT 4 MG TABRAP PO (14:07)
--- NOTE | 2025-05-30 14:07 | XR_ITS ---
EXAMINATION: Small bowel series AP abdomen 3 views Date and time: May 30, 2025, 1458 hours INDICATIONS: Abdominal pain and distention history Technique and findings: Patient received 120 cc Gastrografin with immediate 30-minute and 1 hour films obtained Contrast in distended stomach Contrast in nondistended jejunal and ileal loops Possible niche like area along the lesser curvature of the stomach IMPRESSION: Recommend follow-up abdomen films 5:00 p.m. 7:00 p.m. Suspicious for gastric ulcer, recommend elective upper GI series follow-up with fluoroscopy
--- NOTE | 2025-05-30 14:08 | EKG_ITS ---
[facility] Test Date: 2025-05-30 Pat Name: HEIKE OLIVEIRA Department: Room: - Gender: Female Pharmacy Account Director: : 1960 Requested By: Holli Orlando Order Number: [id number] Reading MD: Holli Orlando Measurements Intervals [place] Rate: 70 P: -19 MT: 142 QRS: -16 QRSD: 86 T: -23 QT: 428 QTc: 465 Interpretive Statements SINUS RHYTHM LEFT VENTRICULAR HYPERTROPHY AND ST-T CHANGE [VOLTAGE CRITERIA PLUS ST/T ABNORMALITY] Compared to ECG 01/10/2023 12:08:47 Left ventricular hypertrophy now present Sinus bradycardia no longer present ST (T wave) deviation still present /store/S0/[id number]/ecg/[id number].pdf
[2025-05-30 16:01] LABS: Troponin I < 0.002 ng/mL (0.0-0.045)
[2025-05-30 18:52] VITALS: BP 122/82; PULSE 78
== END 2025-05-30 18:52 | disposition home or self-care (01) ==
PROVIDERS: Nurse Practitioner Family; Emergency Provider Emergency Medicine; PCP Family Medicine
DX: K59.09 Other constipation (principal); E03.9 Hypothyroidism, unspecified
CPT/HCPCS: 36415; 74018; 74177; 74250; 80053; 81001; 83690; 84484; 85025; 87086; 93005; 99283; A4649; Q0162; Q9967; A9270

== ENCOUNTER 2025-06-15 13:00 | Outpatient (RCR) | payer MEDICARE, MEDICAID, SELFPAY ==
--- NOTE | 2025-06-15 13:24 | PTNOTE_ITS ---
PT OP Initial Eval Patient Information Outpatient Physical Therapy Treatment Date: 06/15/25 Visit Reasons: left thumb fracture Medical Diagnosis: S62.525A Treatment Dx #1: L thumb pain Start of Care: 06/15/25 Date of Onset: 09/29/24 Smoking Status Smoking Status: Never smoker Initial Assessment Subjective: Pt is 65 yr old female who fell crossing the street and fractured the L distal phalanx first digit. The pain the the thumb is gone for the most part but sometime she feels pain when she writes with a pen. She is left handed and fine motor activities like pinching coins hurts. 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 TTP: min/moderate of distal thumb with deep pressure on medial lateral digit pad Assessment: Pt presents with pain of distal phalanx of L thumb with deep pressure and when she uses a pen to write and pushes on the digit pad. Pt may benefit from skilled therapy and has fair/good rehab potential to meet goals. Short Term and Bag Repairer Goals 1. Ind with HEP 2. Decreased TTP from mod to none of L distal phalanx with deep pressure 3. Pt will write with L hand x1 min with <=2/10 thumb pain Treatment Plan 1. Manual therapy ? 2. Therex ? 3. Modalities as indicated, moist heat, ice, estim Frequency and Duration: 1-2x a week for 12 visits Certification Dates: 06/15/25 to 06/16/25 Procedure Charges OP PT Eval Mod Complex 30 minutes: Yes
--- NOTE | 2025-06-29 10:50 | PT.ODS1RPT ---
PT OP Progress/Discharge Note Date of Service: 06/29/25 Progress Note/DC Note Progress Note/Discharge Note: DC Note Patient Information Visit Reasons: left thumb fracture Service Continue Service or Discharge: Discharge Discharge Date: 06/29/25 Status Assessment: Pt attended the initial evaluation and no showed the 1 Rx visit and then called to cancel therapy that she doesn't need it. Thank you for your referrals. Plan: Self-D/C
== END 2025-07-11 23:59 | disposition home or self-care (01) ==
LOC: CPTX 13:00
PROVIDERS: PCP Surgery; Referring Provider Surgery; Visit Provider Surgery
DX: M79.645 Pain in left finger(s) (principal); S62.522D Displaced fracture of distal phalanx of left thumb, subsequent encounter for fracture with routine healing; X58.XXXD Exposure to other specified factors, subsequent encounter; I10 Essential (primary) hypertension
CPT/HCPCS: 97162

== ENCOUNTER 2025-07-23 11:30 | Day surgery (SDC) | payer MEDICARE, MEDICAID, SELFPAY ==
[2025-07-23] VITALS (11 sets, daily range): BP systolic 112–168; BP diastolic 69–87; PULSE 62–71; RESP 12–19; TEMP 36.4–37.1; O2SAT 96–100; BMI 22.5
[2025-07-23] MEDS: BENZOCAINE 20% (Hurricaine) SPRAY 1 DOSE TOP (13:15)
[2025-07-23] MEDS: SODIUM CHLORIDE 0.9% 500 ML 500 ML 20 ML IV (13:15)
[2025-07-23] MEDS: fentaNYL CIT INJ 50 mCg/ML AMP 2ML (ASD USE ONLY) IVP (13:17)
[2025-07-23] MEDS: MIDAZOLAM INJ 1 MG/ML VIAL 2 ML (ASD USE ONLY) 2 MG IVP (13:30)
[2025-07-23] MEDS: MEPERIDINE INJ 25 MG/ML VIAL (ASD USE ONLY) IVP (13:30)
== END 2025-07-23 14:40 | disposition home or self-care (01) ==
PROVIDERS: PCP Family Medicine; Referring Provider Specialist; Visit Provider Specialist
PROC: (CPT 43239; principal; 2025-07-23 13:15)
PROC: 0DBE8ZX Excision of Large Intestine, Via Natural or Artificial Opening Endoscopic, Diagnostic (ICD-10-PCS; CPT 45380; 2025-07-23 13:15)
DX: K29.51 Unspecified chronic gastritis with bleeding (principal); K64.1 Second degree hemorrhoids; R19.4 Change in bowel habit; K29.50 Unspecified chronic gastritis without bleeding; K20.91 Esophagitis, unspecified with bleeding
CPT/HCPCS: 45378; 43239; A4649; J1200; J2175; J2250; J3010; J7999; A9270